=== PATIENT | female | born 1945 | race Caucasian/White ===

== ENCOUNTER → 2019-02-04 | Outpatient (CLI) | payer OTHER ==
[~2019-02-04] VITALS: Ht 172.7 cm; Wt 108.9 kg
[~2019-02-04] MED LIST: APAP500 PO; ASPIR 8181 MG PO; ASPIRIN325 PO; CARDIZEM CD120 MG PO; CLARITIN10 MG PO; COREG25 MG PO; DEPO-MEDRO80 MG/1 ML IM; ELIQUIS5 MG PO; EXCEDRIN CAPLE1 EACH PO; HUMULINR100; LASIX 20 MG TAB20 MG PO; LEVOTHYROXIN0.175 MG PO; LIPITOR10 MG PO; METFORMIN HCL500 M2 PO; METFORMIN HCL500 MG PO; NAPROSYN500 MG PO; NEURONTIN 300300 M1 PO; NORCO 5-325 TA1 EACH PO; NOVOLIN N100 UNIT/3 SQ; ONE-A-DAY WOMENS PO; RANITIDINE 150150 MG PO; SYNTHROID137 MC1 PO; TOLTERODINE TART4 MG PO; TRAMADOL 50 MG50 MG PO; TRANSDERM-SCO1 PATC1 TD; VITAMIN D31000 UNIT PO; ZYRTEC10 M5 PO
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
[2019-02-04 13:12] VITALS: BP 140/63
--- NOTE | 2019-02-04 14:00 | NUR ---
Pain Clinic Assessment: 1. History of Osteoarthritis: Left Lower Extremity Right Lower Extremity History of Rheumatoid Arthritis: Not Applicable 2. Height: 5 ft. 8 in. 172.7 cm. Weight: 240.0 lb. oz. 108.864 kg. Patient's BMI: 36.5 3. Vital Signs: BP: 140/63 Pulse: 61 Resp: 16 Temp: 02 Sat: 99 ECG Mon: 4. Pain Intensity: 8 5. Fall Risk: Dizziness: N Needs help standing or walking: N Fallen in the last 3 months: N Fall risk comments: 6. Patient on Blood Thinner: SANDEEP 7. History of Hypertension: Y 8. Opioid Therapy greater than 6 weeks: N Opiate Contract Signed: 9. Risk Assessment Tool Provided: 10. Functional Assessment Tool: 11. Recreational Drug Use: Never Drug Type: Tobacco Use: Never Smoker Tobacco Type: Amount or Packs/day: How Many Years: Alcohol Use: Yes Frequency: Special Occasions Quant: 1-2
== END ==
LOC: PAIN 06:51
DX: M47.816 Spondylosis without myelopathy or radiculopathy, lumbar region (principal); M25.551 Pain in right hip; M25.552 Pain in left hip